=== PATIENT | male | born 1945 | race Caucasian/White ===

== ENCOUNTER → 2017-09-30 12:34 | Outpatient (CLI) | payer MEDICARE, SELFPAY | PROVIDERS: PCP Specialist/Technologist Athletic Trainer; Visit Provider Orthopaedic Surgery | DX: M25.511 Pain in right shoulder (principal); M19.011 Primary osteoarthritis, right shoulder; M75.41 Impingement syndrome of right shoulder; Z01.818 Encounter for other preprocedural examination ==

== ENCOUNTER → 2017-10-19 09:30 | Outpatient (CLI) | payer MEDICARE, SELFPAY | PROVIDERS: PCP Specialist/Technologist Athletic Trainer; Visit Provider Orthopaedic Surgery | DX: Z47.89 Encounter for other orthopedic aftercare (principal); M19.011 Primary osteoarthritis, right shoulder; M25.511 Pain in right shoulder ==

== ENCOUNTER 2017-11-26 10:10 | Outpatient (CLI) | payer MEDICARE, SELFPAY ==
[2017-11-26 10:32] LABS: HGB 14.7 g/dL (13.5-17.5); Mean Corp. HGB Concentration 33.4 g/dL (32.0-36.0); Mean Corpuscular Hemoglobin 30.9 pg (27.0-33.0); Mean Corpuscular Volume 92.4 fL (80-95); Mean Platelet Volume 9.8 fL (8.0-11.0); Platelet Count 190 x1000/uL (130-400); RBC 4.76 m/cumm (4.50-6.00); RBC Distribution Width 13.8 % (11.8-14.1); White Blood Cell Count 3.96 k/cumm (4.4-10.8)
[2017-11-26 11:35] LABS: ALT 41 U/L (12-78); AST 24 U/L (15-37)
[2017-11-26 11:40] LABS: Cholesterol 213 mg/dL (50-200); Triglyceride 125 mg/dL (30-150)
== END 2017-11-26 10:30 ==
PROVIDERS: PCP Specialist/Technologist Athletic Trainer; Visit Provider Dermatology
DX: L40.0 Psoriasis vulgaris (principal); Z79.899 Other long term (current) drug therapy
CPT/HCPCS: 36415; 85027; 82465; 84450; 84460; 84478

== ENCOUNTER 2018-05-30 07:38 | Outpatient (CLI) | payer MEDICARE, SELFPAY ==
[2018-05-30 07:59] LABS: HCT 44.4 % (40.0-50.0); HGB 15.3 g/dL (13.5-17.5); Mean Corp. HGB Concentration 34.5 g/dL (32.0-36.0); Mean Corpuscular Hemoglobin 31.1 pg (27.0-33.0); Mean Corpuscular Volume 90.2 fL (80-95); Mean Platelet Volume 10.2 fL (8.0-11.0); Platelet Count 164 x1000/uL (130-400); RBC 4.92 m/cumm (4.50-6.00); RBC Distribution Width 13.5 % (11.8-14.1); White Blood Cell Count 4.74 k/cumm (4.4-10.8)
[2018-05-30 09:16] LABS: ALT 36 U/L (12-78); AST 18 U/L (15-37)
[2018-05-30 09:19] LABS: Cholesterol 223 mg/dL (50-200); Triglyceride 157 mg/dL (30-150)
== END 2018-05-30 07:58 ==
LOC: LBN 07:44 → LBO 07:47
PROVIDERS: PCP Specialist/Technologist Athletic Trainer; Visit Provider Dermatology
DX: L40.0 Psoriasis vulgaris (principal); Z79.899 Other long term (current) drug therapy
CPT/HCPCS: 36415; 85027; 82465; 84450; 84460; 84478

== ENCOUNTER 2018-11-29 15:16 | Outpatient (CLI) | payer MEDICARE, SELFPAY ==
[2018-11-29 16:24] LABS: HCT 43.3 % (40.0-50.0); HGB 14.6 g/dL (13.5-17.5); Mean Corp. HGB Concentration 33.7 g/dL (32.0-36.0); Mean Corpuscular Hemoglobin 30.6 pg (27.0-33.0); Mean Corpuscular Volume 90.8 fL (80-95); Mean Platelet Volume 10.1 fL (8.0-11.0); Platelet Count 167 x1000/uL (130-400); RBC 4.77 m/cumm (4.50-6.00); RBC Distribution Width 14.1 % (11.8-14.1); White Blood Cell Count 4.97 k/cumm (4.4-10.8)
[2018-11-29 16:40] LABS: Cholesterol 196 mg/dL (50-200); Triglyceride 210 mg/dL (30-150)
[2018-11-29 16:44] LABS: ALT 35 U/L (16-63); AST 22 U/L (15-37)
== END 2018-11-29 15:36 ==
PROVIDERS: PCP Specialist/Technologist Athletic Trainer; Visit Provider Dermatology
DX: L40.0 Psoriasis vulgaris (principal); Z79.899 Other long term (current) drug therapy
CPT/HCPCS: 36415; 85027; 82465; 84450; 84460; 84478

== ENCOUNTER 2019-05-25 09:53 | Outpatient (CLI) | payer MEDICARE, SELFPAY ==
[2019-05-25 10:35] LABS: HCT 42.4 % (40.0-50.0); HGB 14.7 g/dL (13.5-17.5); Mean Corp. HGB Concentration 34.7 g/dL (32.0-36.0); Mean Corpuscular Hemoglobin 31.4 pg (27.0-33.0); Mean Corpuscular Volume 90.6 fL (80-95); Mean Platelet Volume 9.9 fL (8.0-11.0); Platelet Count 175 x1000/uL (130-400); RBC 4.68 m/cumm (4.50-6.00); RBC Distribution Width 13.8 % (11.8-14.1)
[2019-05-25 11:54] LABS: ALT 54 U/L (16-63); AST 28 U/L (15-37)
[2019-05-25 12:54] LABS: Cholesterol 217 mg/dL (<200); Triglyceride 98 mg/dL (<150)
== END 2019-05-25 10:13 ==
PROVIDERS: PCP Specialist/Technologist Athletic Trainer; Visit Provider Dermatology
DX: L40.0 Psoriasis vulgaris (principal); Z79.899 Other long term (current) drug therapy
CPT/HCPCS: 36415; 85027; 82465; 84450; 84460; 84478

== ENCOUNTER 2019-09-08 08:40 | Outpatient (CLI) | payer MEDICARE, SELFPAY ==
[2019-09-15 08:58] LABS: SARS-CoV-2 RNA Undetected (Undetected)
== END 2019-09-08 09:00 ==
PROVIDERS: PCP Specialist/Technologist Athletic Trainer; Visit Provider Nurse Practitioner Family
DX: Z03.818 Encounter for observation for suspected exposure to other biological agents ruled out (principal)
CPT/HCPCS: U0003

== ENCOUNTER 2019-12-11 01:27 | Outpatient (CLI) | payer MEDICARE, SELFPAY ==
[2019-12-11 14:02] LABS: HCT 39.8 % (40.0-50.0); HGB 13.9 g/dL (13.5-17.5); MCHC 34.9 % (32.0-36.0); MCV 88.6 fL (80-95); MPV 10.1 fL (8.0-11.0); Platelet Count 169 10^3/uL (130-400); RBC 4.49 10^6/uL (4.36-5.78); RDW 13.1 % (11.8-14.1); RDW-SD 42.3 fL; WBC 5.26 10^3/uL (4.4-10.8)
[2019-12-11 15:10] LABS: ALT 36 U/L (16-63); AST 21 U/L (15-37); Cholesterol 199 mg/dL (<200); Triglyceride 139 mg/dL (<150)
== END 2019-12-11 01:47 ==
PROVIDERS: Visit Provider Dermatology
DX: L40.0 Psoriasis vulgaris (principal); Z79.899 Other long term (current) drug therapy
CPT/HCPCS: 36415; 85027; 82465; 84450; 84460; 84478

== ENCOUNTER 2020-04-02 16:12 | Outpatient (REF) | payer MEDICARE, SELFPAY ==
[2020-04-02 16:54] LABS: Anion Gap 4.8 mmol/L (3-11); BUN 15 mg/dL (7-18); CO2 30.2 mmol/L (21.0-32.0); Calcium 8.9 mg/dL (8.5-10.1); Calculated LDL 117 mg/dL (<100); Chloride 106 mmol/L (98-107); Cholesterol 200 mg/dL (<200); Glucose 97 mg/dL (74-106); HDL Cholesterol 66 mg/dL (40-60); Potassium 4.6 mmol/L (3.5-5.1); Sodium 141 mmol/L (136-145); Triglyceride 88 mg/dL (<150)
[2020-04-03 17:52] LABS: PSA, Screening 1.2 ng/mL (0.0-6.5)
== END 2020-04-02 16:13 | disposition home or self-care (01) ==
LOC: NCHCN 16:12
PROVIDERS: PCP Nurse Practitioner Family; Visit Provider Nurse Practitioner Family
DX: R03.0 Elevated blood-pressure reading, without diagnosis of hypertension (principal); Z12.5 Encounter for screening for malignant neoplasm of prostate; Z79.899 Other long term (current) drug therapy
CPT/HCPCS: 80048; 80061; 84153

== ENCOUNTER 2020-07-12 08:20 | Outpatient (REF) | payer MEDICARE, SELFPAY ==
[2020-07-12 16:36] LABS: ALT 42 U/L (16-63); AST 27 U/L (15-37); Creatine Kinase 144 U/L (39-308); HDL Cholesterol 60 mg/dL (40-60); LDL CHOLESTEROL 58 mg/dL (<100)
== END 2020-07-12 08:21 | disposition home or self-care (01) ==
LOC: NCHCN 08:20
PROVIDERS: PCP Nurse Practitioner Family; Visit Provider Nurse Practitioner Family
DX: E78.5 Hyperlipidemia, unspecified (principal); R35.0 Frequency of micturition
CPT/HCPCS: 82550; 83721; 83718; 84450; 84460

== ENCOUNTER 2020-11-26 01:47 | Outpatient (CLI) | payer MEDICARE, SELFPAY ==
--- NOTE | 2020-11-26 08:30 | DI.CT_ITS ---
Exam(s) CT SINUS WO EXAM: CT SINUS WO CLINICAL HISTORY: CHRONIC RHINITIS,RUNNY NOSE,DEVIATED SEPTUM,HYPERTROPHY INFERIOR NASAL TURB. Eval uate for sinusitis. TECHNIQUE: Imaging Protocol: Axial computed tomography images with coronal and sagittal reformatted images were created and reviewed. COMPARISON: No exams were available for comparison FINDINGS: AXIAL IMAGES: Frontal sinuses: Mild mucosal thickening. No air-fluid levels. Ethmoid air cells: Mild mucosal thickening of several ethmoid air cells bilaterally. Maxillary sinuses: Mild mucosal thickening bilaterally. No air-fluid levels. Sphenoid sinus: Normally aerated. Ostiomeatal complexes: Patent. Turbinates grossly unremarkable. Osseous nasal septum: Mild deviation to the right. Visualized regional soft tissues: No acute findings. Orbits and retro-orbital soft tissues: Unremarkable. Bones: Unremarkable. Mastoid Air Cells: Normally aerated. IMPRESSION: Mild mucosal thickening in several of the visualized paranasal sinuses. No acute air-fluid levels ar e present. RADIATION DOSE DELIVERED: 125.64mGy.cm Total DLP DATA REPOSITORY: All CT scans at this facility are submitted to the National Radiology Data Registry (NRDR) Dose Index Registry (DIR) with the [employer] (ACR). RADIATION OPTIMIZATION: All CT scans at this facility use at least one of these dose optimization te chniques: automated exposure control; mA and/or kV adjustment per patient size (includes targeted exa ms where dose is matched to clinical indication); or iterative reconstruction.
== END 2020-11-26 02:07 ==
PROVIDERS: PCP Nurse Practitioner Family; Visit Provider Otolaryngology Otolaryngology/Facial Plastic Surgery
DX: J34.3 Hypertrophy of nasal turbinates (principal); J34.2 Deviated nasal septum; R09.89 Other specified symptoms and signs involving the circulatory and respiratory systems; J31.0 Chronic rhinitis
CPT/HCPCS: 70486

== ENCOUNTER 2021-09-08 13:53 | Outpatient (REF) | payer MEDICARE, SELFPAY ==
[2021-09-08 15:56] LABS: ALT 50 U/L (16-63); AST 27 U/L (15-37); HDL Cholesterol 67 mg/dL (40-60); LDL CHOLESTEROL 76 mg/dL (<100)
[2021-09-08 16:10] LABS: Creatine Kinase 144 U/L (39-308)
== END 2021-09-08 13:54 | disposition home or self-care (01) ==
LOC: NCHCN 13:53
PROVIDERS: PCP Nurse Practitioner Family; Visit Provider Nurse Practitioner Family
DX: E78.5 Hyperlipidemia, unspecified (principal)
CPT/HCPCS: 82550; 83721; 83718; 84450; 84460

== ENCOUNTER 2021-12-25 11:55 | Outpatient (CLI) | payer MEDICARE, SELFPAY ==
[2021-12-25 12:15] LABS: HCT 40.9 % (40.0-50.0); HGB 13.8 g/dL (13.5-17.5); MCH 31.3 pg (27.0-33.0); MCHC 33.7 % (32.0-36.0); MCV 93 fL (80-95); MPV 10.1 fL (8.0-11.0); Platelet Count 146 10^3/uL (130-400); RBC 4.41 10^6/uL (4.36-5.78); RDW 12.9 % (11.8-14.1); RDW-SD 43.8 fL; WBC 4.64 10^3/uL (4.4-10.8)
[2021-12-25 12:42] LABS: ALT 32 U/L (16-63); AST 24 U/L (15-37)
[2021-12-25 13:02] LABS: Cholesterol 149 mg/dL (<200); Triglyceride 77 mg/dL (<150)
== END 2021-12-25 11:56 | disposition home or self-care (01) ==
LOC: LBO 11:55
PROVIDERS: PCP Nurse Practitioner Family; Visit Provider Dermatology
DX: Z79.899 Other long term (current) drug therapy (principal); L40.1 Generalized pustular psoriasis
CPT/HCPCS: 36415; 85027; 82465; 84450; 84460; 84478

== ENCOUNTER 2022-06-03 14:48 | Outpatient (CLI) | payer MEDICARE, SELFPAY ==
[2022-06-03 14:46] LABS: HCT 43.2 % (40.0-50.0); HGB 14.8 g/dL (13.5-17.5); MCH 31.2 pg (27.0-33.0); MCHC 34.3 % (32.0-36.0); MCV 91 fL (80-95); MPV 9.8 fL (8.0-11.0); Platelet Count 161 10^3/uL (130-400); RBC 4.75 10^6/uL (4.36-5.78); RDW 13.3 % (11.8-14.1); RDW-SD 44.2 fL
[2022-06-03 15:06] LABS: Hemoglobin A1C 5.3 % (<5.7)
[2022-06-03 15:28] LABS: Calculated LDL 75 mg/dL (<100); Cholesterol 163 mg/dL (<200); HDL Cholesterol 70 mg/dL (40-60); Triglyceride 91 mg/dL (<150)
[2022-06-03 15:36] LABS: ALT 48 U/L (16-63); AST 22 U/L (15-37); TSH (W/Ref FT4) 2.82 uIU/mL (0.36-3.74)
== END 2022-06-03 14:49 | disposition home or self-care (01) ==
LOC: LBO 14:50
PROVIDERS: PCP Nurse Practitioner Family; Visit Provider Nurse Practitioner Family
DX: L40.1 Generalized pustular psoriasis (principal); Z79.899 Other long term (current) drug therapy
CPT/HCPCS: 36415; 80061; 85027; 83036; 84443; 84450; 84460

== ENCOUNTER 2022-08-03 14:55 | Emergency (ER) | payer MEDICARE, SELFPAY ==
[2022-08-03 14:59] VITALS: BP 140/68; PULSE 60; RESP 16; TEMP 36.5; O2SAT 96
--- NOTE | 2022-08-03 22:41 | ED.GENADUL_ITS ---
Discharge Plan Disposition Patient Disposition: Home Discharge Details Clinical Impression: Laceration of leg Primary Care Provider: Genesis Colmenares ED Provider: Maria Victoria Carvajal Home Meds and New Rx's Prescriptions: New cephalexin 500 mg capsule 500 mg PO Q6H 7 Days Qty: 28 0RF Continued methotrexate sodium 2.5 MG tablet 2.5 mg PO WEEKLY Patient Comments: 03.31.17 PT HX SHOWS 2.5MG TABLET 6 TABS PO Q WEEK.he folic acid 1 MG tablet 1 mg PO DAILY acetaminophen [Tylenol Extra Strength] 500 MG tablet 500 mg PO PRN ibuprofen 200 MG tablet 200 mg PO PRN PRN hydrocodone-acetaminophen 1 EACH tablet 1 tab PO Q6H PRN PRNQty: 14 0RF atorvastatin 10 mg tablet 10 mg PO DAILY Patient Comments: TAKE ONE TABLET BY MOUTH IN THE EVENING Discharge Instructions Instructions: Laceration (ED) Additional Instructions: Keep wound clean and dry Elevate your leg is much as possible, the more you are dependent on it the longer will take care of Yogurt daily while on antibiotic Ibuprofen and Tylenol as needed for pain Return earlier should you have new or worsening complaints Referrals: Genesis Colmenares [Primary Care Provider] - Medical Decision Making 76-year-old gentleman presents with large laceration to the right lower extremity Recommended x-ray for further assessment of bony damage or possible foreign body, patient adamantly refuses, patient adamantly refuses xray at this time, fully alert, oriented, of decisional capacity and ambulatory with steady gait I spent approximately 35 minutes suturing this laceration with copious irrigation and large dressing Antibiotics initiated Recheck in 48 to 72 hours recommended Return precautions reviewed and patient expressed understanding Medical Records Medical records reviewed: Yes I reviewed the patient's medical records. Lab Data Lab results reviewed: Yes I reviewed the patient's lab results. HPI General Date/Time Provider Initiated Documentation: 08/03/22 16:31 . HPI Narrative: Patient is a 76-year-old gentleman that was cutting a tree from a tree kicked back and hit his giron. He was seen at [facility] who sent him here for further assessment and closure. States his tetanus is up-to-date. Denies any strength or sensation change. Event occurred just prior to arrival per patient. Related Data Home Medications Medication Instructions Recorded Confirmed acetaminophen 500 mg tablet 500 mg PO PRN 10/08/12 10/04/17 (Tylenol Extra Strength) ibuprofen 200 mg tablet 200 mg PO PRN PRN 10/09/12 10/04/17 folic acid 1 mg tablet 1 mg PO DAILY 03/31/17 08/03/22 methotrexate sodium 2.5 mg tablet 2.5 mg PO WEEKLY 03/31/17 08/03/22 hydrocodone 5 mg-acetaminophen 325 1 tab PO Q6H PRN PRN ##14 10/04/17 mg tablet atorvastatin 10 mg tablet 10 mg PO DAILY 08/03/22 08/03/22 cephalexin 500 mg capsule 500 mg PO Q6H 7 days #28 caps 08/03/22 Previous Rx's Medication Instructions Recorded hydrocodone 5 mg-acetaminophen 325 1 tab PO Q6H PRN PRN ##14 10/04/17 mg tablet cephalexin 500 mg capsule 500 mg PO Q6H 7 days #28 caps 08/03/22 Allergies Allergy/AdvReac Type Severity Reaction Status Date / Time No Known Allergies Allergy Unverified 08/03/22 16:43 General Stated Complaint: Laceration JAMIR: 4 PFSH All Active Problems (Updated 08/03/22 @ 17:43 by KAROL Mckinney) Laceration of leg (Acute) Deviated nasal septum (Acute) Hypertrophy of inferior nasal turbinate (Acute) Social History Smoking/Tobacco Use Status: Never Smoking risk assessment performed?: Yes Alcohol Intake: never Drug use: Never Substance use type: does not use Do you feel safe at home: Yes Do you feel safe in your relationship?: Yes Exam Extrem Other: Patient with a 4 inch laceration to his right anterior distal giron, neurovascularly intact, visualized fascia with muscle tissue noted although neurovascularly intact and ambulatory with antalgic gait Course Vital Signs Vital signs: Vital Signs Temperature 36.5 C 08/03/22 14:59 Pulse 60 08/03/22 14:59 Respiratory Rate 16 08/03/22 14:59 Blood Pressure 140/68 08/03/22 14:59 Pulse Oximetry 96 08/03/22 14:59 Temperature 36.5 C 08/03/22 14:59 Temperature Source Skin 08/03/22 14:59 Pulse 60 08/03/22 14:59 Respiratory Rate 16 08/03/22 14:59 Respiratory Effort Normal 08/03/22 16:46 Blood Pressure 140/68 06/05/23 14:59 Blood Pressure Position Sitting 08/03/22 14:59 Pulse Oximetry 96 08/03/22 14:59 Oxygen Delivery Method Room Air 08/03/22 14:59 Oxygen Flow Rate 0 08/03/22 14:59 Pain Level 0 08/03/22 14:59 Procedures Laceration Laceration 1: Site: lower extremity Side (If applicable): right Size (cm): 10 Description: linear Depth: simple, single layer Local Anesthetic: with Epi Amount of anesthesia used (mL): 10 Pre-repair: wound explored, irrigated extensively and wound margins revised Skin layer closed with: nylon Size (cm): 4-0 Number of sutures: 7 Technique: simple, interrupted and horizontal mattress Subcutaneous layer closed with: vicryl Size: 4-0 Number of sutures: 6 Technique: running Muscle layer closed with: vicryl Size: 4-0 Number of sutures: 8 Technique: running
== END 2022-08-03 18:50 | disposition home or self-care (01) ==
PROVIDERS: Emergency Provider Physician Assistant; PCP Nurse Practitioner Family
DX: S91.011A Laceration without foreign body, right ankle, initial encounter (principal); W20.8XXA Other cause of strike by thrown, projected or falling object, initial encounter
CPT/HCPCS: 12004

== ENCOUNTER 2022-11-30 19:06 | Outpatient (CLI) | payer MEDICARE, SELFPAY ==
[2022-11-30 14:48] LABS: HCT 37.9 % (40.0-50.0); HGB 13.2 g/dL (13.5-17.5); MCH 31.4 pg (27.0-33.0); MCHC 34.8 % (32.0-36.0); MCV 90 fL (80-95); MPV 10.3 fL (8.0-11.0); Platelet Count 151 10^3/uL (130-400); RDW 13.1 % (11.8-14.1); RDW-SD 43.1 fL; WBC 5.23 10^3/uL (4.4-10.8)
[2022-11-30 15:25] LABS: ALT 35 U/L (16-63); AST 27 U/L (15-37)
[2022-11-30 15:34] LABS: Cholesterol 130 mg/dL (<200); Triglyceride 88 mg/dL (<150)
== END 2022-11-30 19:07 | disposition home or self-care (01) ==
LOC: LBO 19:06
PROVIDERS: PCP Nurse Practitioner Family; Visit Provider Dermatology
DX: Z79.899 Other long term (current) drug therapy (principal); L40.1 Generalized pustular psoriasis
CPT/HCPCS: 36415; 85027; 82465; 84450; 84460; 84478

== ENCOUNTER 2023-06-02 15:41 | Outpatient (CLI) | payer MEDICARE, SELFPAY ==
[2023-06-02 15:41] LABS: HCT 41.3 % (40.0-50.0); MCHC 33.9 % (32.0-36.0); MCV 92 fL (80-95); MPV 9.9 fL (8.0-11.0); Platelet Count 149 10^3/uL (130-400); RBC 4.51 10^6/uL (4.36-5.78); RDW 13.3 % (11.8-14.1); RDW-SD 44.7 fL; WBC 4.63 10^3/uL (4.4-10.8)
[2023-06-02 16:40] LABS: ALT 39 U/L (16-63); AST 31 U/L (15-37)
[2023-06-02 16:41] LABS: Cholesterol 152 mg/dL (<200); Triglyceride 50 mg/dL (<150)
== END 2023-06-02 15:42 | disposition home or self-care (01) ==
LOC: LBO 15:42
PROVIDERS: PCP Nurse Practitioner Family; Visit Provider Dermatology
DX: Z79.899 Other long term (current) drug therapy (principal); L40.1 Generalized pustular psoriasis
CPT/HCPCS: 36415; 85027; 82465; 84450; 84460; 84478

== ENCOUNTER 2023-10-22 21:03 | Outpatient (CLI) | payer MEDICARE, SELFPAY ==
--- NOTE | 2023-10-22 | DI.US_ITS ---
Exam(s) US ABDOMEN EXAM: US ABDOMEN CLINICAL HISTORY: ABD PAIN, R10.9, ABD DISCOMFORT NOW OVER 1 WK, RELATED TO EATING TECHNIQUE: Ultrasound abdomen performed using standard protocol. COMPARISON: US RIGHT EXTREMITY ULTRASOUND from 10/09/2012 FINDINGS: ABDOMINAL AORTA AND IVC: Visualized portions normal caliber. PANCREAS: Normal where visualized. LIVER: Normal. Hepatopetal flow in the Portal Vein. The liver measures 15.8 cm long. GALLBLADDER:Cholelithiasis. There are stones seen in the neck of the gallbladder.. No evidence of w all thickening. No pericholecystic fluid identified. BILIARY SYSTEM: Common bile duct measures < 7 mm. No intrahepatic biliary ductal dilation. MARI'S SIGN: Negative. KIDNEYS: Kidneys are symmetric in size. No evidence of renal calculi. No evidence of hydronephrosis. There are simple cysts seen in the right kidney. No follow-up is recommended. There is a 3.2 cm sim ple left renal cysts. No follow-up is recommended. SPLEEN: Not enlarged. ASCITES: None seen. IMPRESSION: Cholelithiasis. No sonographic evidence to suggest acute cholecystitis. No biliary ductal dilatation. DATA REPOSITORY:
--- NOTE | 2023-10-22 17:06 | DI.VRAD_ITS ---
PROCEDURE INFORMATION: Exam: US Abdomen Complete Exam date and time: 10/22/2023 3:16 PM Age: 78 years old Clinical indication: Abdominal pain; Generalized; Patient HX: Appendix removed per patient TECHNIQUE: Imaging protocol: Real-time ultrasound of the abdomen with image documentation. Complete exam. COMPARISON: No relevant prior studies available. FINDINGS: Liver: Normal. No mass. Gallbladder: There is suggestion of 2 large stones in the neck region of the gallbladder. However, there is no significant gallbladder distension or wall thickening. Biliary ducts: Normal. No stones. No dilation. Pancreas: Visualized pancreas is unremarkable. Right kidney: No mass. No hydronephrosis. Left kidney: No mass. No hydronephrosis. A 3.2 cm simple appearing cystic structure in the left kidney is likely a parapelvic cyst. Simple appearing cysts also noted in the right kidney measuring approximately 1.7 cm and 0.7 cm. Spleen: Normal. No splenomegaly. Aorta: Normal. No aneurysm. Inferior vena cava: Normal. IMPRESSION: Possible calculi within the gallbladder, however no evidence of distension or significant gallbladder inflammation. Clinical correlation recommended. Dictated and Authenticated by: Arlene Wiggins MD. Ordering:NEGIN Lewis MD
== END 2023-10-22 21:23 ==
LOC: DI 21:04
PROVIDERS: PCP Nurse Practitioner Family; Visit Provider Physician Assistant Medical
DX: K80.80 Other cholelithiasis without obstruction (principal)
CPT/HCPCS: 36415; 80053; 83690; 76700; 81003; 85025

== ENCOUNTER 2023-10-22 21:15 | Outpatient (CLI) | payer MEDICARE, SELFPAY ==
[2023-10-22 15:16] LABS: Abs Immature Grans 0.03 10^3/uL (0.0-0.06); Absolute Basophil Count 0.02 10^3/uL (0.0-0.2); Absolute Monocyte Count 0.74 10^3/uL (0.1-0.8); Absolute Neutrophil Count 4.35 10^3/uL (1.2-6.7); Basophils % 0.3 %; Eosinophils % 1.5 %; HCT 45.5 % (40.0-50.0); HGB 15.3 g/dL (13.5-17.5); Immature Grans % 0.5 %; Lymphocytes % 21.1 %; MCH 30.8 pg (27.0-33.0); MCHC 33.6 % (32.0-36.0); MCV 92 fL (80-95); MPV 9.9 fL (8.0-11.0); Monocytes % 11.1 %; Neutrophils % 65.5 %; Platelet Count 183 10^3/uL (130-400); RBC 4.96 10^6/uL (4.36-5.78); RDW 13.2 % (11.8-14.1); WBC 6.64 10^3/uL (4.4-10.8)
[2023-10-22 15:18] LABS: Bilirubin Negative (Negative); Blood Negative (Negative); Clarity Clear (Clear); Glucose Negative (Negative); Ketones Trace mg/dL (Negative); Leukocyte Esterase Negative (Negative); Nitrite Negative (Negative); Specific Gravity >= 1.030 (1.005-1.025); Urobilinogen 0.2 mg/dL (Up to 0.2)
[2023-10-22 16:09] LABS: ALT 29 U/L (16-63); AST 23 U/L (15-37); Albumin 3.7 g/dL (3.4-5.0); Alkaline Phosphatase 97 U/L (46-116); Anion Gap 6.3 mmol/L (3-11); BUN 20 mg/dL (7-18); Bilirubin, Total 0.81 mg/dL (0.2-1.0); CO2 29.7 mmol/L (21.0-32.0); CREATININE 1.2 mg/dL (0.70-1.30); Calcium 9.3 mg/dL (8.5-10.1); Chloride 103 mmol/L (98-107); Estimated GFR 62.67 (mL/min/1.73m2); Glucose 102 mg/dL (74-106); Lipase 25 U/L (16-77); Potassium 4.3 mmol/L (3.5-5.1); Sodium 139 mmol/L (136-145); Total Protein 6.8 g/dL (6.4-8.2)
== END 2023-10-22 21:16 | disposition home or self-care (01) ==
LOC: LBO 21:16
PROVIDERS: PCP Nurse Practitioner Family; Visit Provider Physician Assistant Medical
DX: R10.9 Unspecified abdominal pain (principal)
CPT/HCPCS: 36415; 80053; 83690; 81003; 85025

== ENCOUNTER 2023-12-01 15:12 | Outpatient (CLI) | payer MEDICARE, SELFPAY ==
[2023-12-01 15:20] LABS: HCT 41.4 % (40.0-50.0); HGB 13.9 g/dL (13.5-17.5); MCH 31.6 pg (27.0-33.0); MCHC 33.6 % (32.0-36.0); MCV 94 fL (80-95); MPV 10.1 fL (8.0-11.0); Platelet Count 156 10^3/uL (130-400); RDW 13.6 % (11.8-14.1); RDW-SD 46.7 fL; WBC 5.38 10^3/uL (4.4-10.8)
[2023-12-01 16:08] LABS: ALT 44 U/L (16-63); AST 28 U/L (15-37)
[2023-12-01 16:11] LABS: Cholesterol 144 mg/dL (<200); Triglyceride 101 mg/dL (<150)
== END 2023-12-01 15:13 | disposition home or self-care (01) ==
LOC: LBO 15:13
PROVIDERS: PCP Nurse Practitioner Family; Visit Provider Dermatology
DX: Z79.899 Other long term (current) drug therapy (principal); L40.1 Generalized pustular psoriasis
CPT/HCPCS: 36415; 85027; 82465; 84450; 84460; 84478

== ENCOUNTER 2023-12-03 19:19 | Emergency (ER) | payer MEDICARE, SELFPAY ==
[2023-12-03 19:19] VITALS: BP 150/72; PULSE 63; RESP 16; TEMP 36.7; O2SAT 97
[2023-12-03] MEDS: Fluorescein STRIPS 100/BOX 1 MG OP (19:43)
[2023-12-03] MEDS: Tetracaine 0.5% 4 ML BTL (19:43)
--- NOTE | 2023-12-03 19:46 | W.ED.GENAD ---
Discharge Plan Disposition Patient Disposition: Home Condition: Stable Discharge Details Clinical Impression: Injury of conjunctiva and corneal abrasion of right eye w/o FB Primary Care Provider: Genesis Patton ED Provider: Karlie Jimenez Home Meds and New Rx's Prescriptions: Continued acetaminophen [Tylenol Extra Strength] 500 MG tablet 500 mg PO PRN atorvastatin 10 mg tablet 10 mg PO DAILY Patient Comments: TAKE ONE TABLET BY MOUTH IN THE EVENING No Action methotrexate sodium 2.5 MG tablet 2.5 mg PO WEEKLY Patient Comments: 03.31.17 PT HX SHOWS 2.5MG TABLET 6 TABS PO Q WEEK.he folic acid 1 MG tablet 1 mg PO DAILY ibuprofen 200 MG tablet 200 mg PO PRN PRN hydrocodone-acetaminophen 1 EACH tablet 1 tab PO Q6H PRN PRNQty: 14 0RF Discharge Instructions Instructions: Corneal Abrasion ED Additional Instructions: Use the erythromycin ointment 3 times daily while awake for the next 3 to 5 days. Call [facility] eye care Wednesday to be seen on Wednesday or Wednesday. Wear sunglasses and keep it covered as needed. Follow up with primary care provider in 3-5 days. Return to ED sooner if any worsening eye pain, drainage, swelling of your eye, loss of vision or concerns. Referrals: [facility] [Outside] - 3 days HPI General Mode of arrival: ambulatory. Date/Time Provider Initiated Documentation: 12/03/23 19:24. Limitations to Documentation: no limitations. Information obtained by: patient, RN notes reviewed and old records reviewed. HPI Narrative: 78-year-old male presents to the ER with a chief complaint of right eye trauma which occurred prior to arrival. Patient was doing yard work when he ran into a matamoros. He reports that the matamoros poked his right eye. He does have a subconjunctival hemorrhage noted to the outer corner of his eye and is abrasion noted. Iris and pupil are within normal limits and reactive. He does not take any blood thinners or aspirin daily. Related Data Home Medications ?Medication ?Instructions ?Recorded ?Confirmed acetaminophen 500 mg tablet 500 mg PO PRN 10/08/12 12/03/23 (Tylenol Extra Strength) ibuprofen 200 mg tablet 200 mg PO PRN PRN 10/09/12 12/03/23 folic acid 1 mg tablet 1 mg PO DAILY 03/31/17 12/03/23 methotrexate sodium 2.5 mg tablet 2.5 mg PO WEEKLY 03/31/17 12/03/23 hydrocodone 5 mg-acetaminophen 325 1 tab PO Q6H PRN PRN ##14 10/04/17 12/03/23 mg tablet atorvastatin 10 mg tablet 10 mg PO DAILY 08/03/22 12/03/23 Previous Rx's ?Medication ?Instructions ?Recorded hydrocodone 5 mg-acetaminophen 325 1 tab PO Q6H PRN PRN ##14 10/04/17 mg tablet Allergies Allergy/AdvReac Type Severity Reaction Status Date / Time No Known Allergies Allergy Unverified 08/03/22 16:43 General Stated Complaint: EyeProblem JAMIR: 4 Review of Systems Eyes Eyes: Reports as per HPI, Reports irritation, Reports eye pain and Reports other (Eye trauma) Exam Const General: cooperative and healthy appearing Nutritional Appearance: average body habitus Orientation: alert, awake and oriented x3 HENMT Head: normal to inspection General nose exam: external nose normal Face and sinus: normal facial exam Eyes Alignment and Position: alignment normal Periorbital: periorbital findings normal Eyelids: eyelids normal Conjunctivae: conjunctival abnormality right subconjunctival hemorrhage Sclera: scleral abnormality right hemorrhage Cornea: corneas abnormal on the right fluorescein used and abrasion; with no foreign body noted Pupils: PERRL, normal by confrontation and accommodation normal EOM: EOM intact bilaterally Direct ophthalmoscopy: normal light reflex Other: No foreign body visualized. Breen lamp and slit lamp exam performed. Eyes/upper lids images: 1. Abrasion 2. Subconjunctival hemorrhage Course Vital Signs Vital signs: Vital Signs Temperature 36.7 C 12/03/23 19:19 Pulse 63 12/03/23 19:19 Respiratory Rate 16 12/03/23 19:19 Blood Pressure 150/72 H 12/03/23 19:19 Pulse Oximetry 97 12/03/23 19:19 Temperature 36.7 C 12/03/23 19:19 Temperature Source Temporal Artery Scan 12/03/23 19:19 Pulse 63 12/03/23 19:19 Respiratory Rate 16 12/03/23 19:19 Respiratory Effort Normal, Non-Labored 12/03/23 19:26 Blood Pressure 150/72 H 12/03/23 19:19 Blood Pressure Position Sitting 12/03/23 19:19 Pulse Oximetry 97 12/03/23 19:19 Oxygen Delivery Method Room Air 12/03/23 19:19 Oxygen Flow Rate 0 12/03/23 19:19 Pain Level 3 12/03/23 19:19 Medical Decision Making 78-year-old male presents to the ER with a chief complaint of right eye trauma which occurred prior to arrival. Patient was doing yard work when he ran into a matamoros. He reports that the matamoros poked his right eye. He does have a subconjunctival hemorrhage noted to the outer corner of his eye and is abrasion noted. Iris and pupil are within normal limits and reactive. He does not take any blood thinners or aspirin daily. Small amount of uptake of dye noted on fluorescein exam and Breen lamp exam. Slit-lamp exam shows no foreign body visualized. EOMs are intact. There is a subconjunctival hemorrhage noted surrounding the abrasion. Will give erythromycin ointment, follow-up with [facility] in the next 2 to 3 days. Discussed strict return instructions verbalized understanding. This text was generated using [employer] dictation system, please disregard any oddities of phrase or misspellings. Quality:SDOH Health Related Social Needs: No Data to Display PFSH All Active Problems (Updated 12/03/23 @ 19:51 by Karlie Jimenez NP) Injury of conjunctiva and corneal abrasion of right eye w/o FB (Acute) Deviated nasal septum (Acute) Hypertrophy of inferior nasal turbinate (Acute) Social History Smoking/Tobacco Use Status: Never Smoking risk assessment performed?: Yes Alcohol Intake: never Drug use: Never Substance use type: does not use Do you feel safe at home: Yes Do you feel safe in your relationship?: Yes
[2023-12-03] MEDS: Erythromycin Ophth Oint 3.5 GM TUBE OD (20:12)
== END 2023-12-03 20:02 | disposition home or self-care (01) ==
PROVIDERS: Emergency Provider Registered Nurse Emergency; PCP Nurse Practitioner Family
DX: S05.01XA Injury of conjunctiva and corneal abrasion without foreign body, right eye, initial encounter (principal); W22.8XXA Striking against or struck by other objects, initial encounter; Y93.H2 Activity, gardening and landscaping; Y92.017 Garden or yard in single-family (private) house as the place of occurrence of the external cause
CPT/HCPCS: 99283

== ENCOUNTER 2024-11-16 15:27 | Outpatient (CLI) | payer MEDICARE, SELFPAY ==
[2024-11-16 14:58] LABS: HCT 38.9 % (40.0-50.0); HGB 13.4 g/dL (13.5-17.5); MCH 31.5 pg (27.0-33.0); MCHC 34.4 % (32.0-36.0); MCV 92 fL (80-95); MPV 10.6 fL (8.0-11.0); Platelet Count 157 10^3/uL (130-400); RBC 4.25 10^6/uL (4.36-5.78); RDW 13.2 % (11.8-14.1); RDW-SD 44.2 fL; WBC 6.66 10^3/uL (4.4-10.8)
[2024-11-16 15:32] LABS: ALT 34 U/L (16-63); AST 23 U/L (15-37)
[2024-11-16 16:18] LABS: Cholesterol 146 mg/dL (<200); Triglyceride 78 mg/dL (<150)
== END 2024-11-16 15:28 | disposition home or self-care (01) ==
PROVIDERS: PCP Nurse Practitioner Family; Visit Provider Dermatology
DX: Z79.899 Other long term (current) drug therapy (principal)
CPT/HCPCS: 36415; 85027; 82465; 84450; 84460; 84478

== ENCOUNTER 2024-12-12 02:03 | Outpatient (CLI) | payer MEDICARE, SELFPAY ==
--- NOTE | 2024-12-12 | DI.RAD_ITS ---
Exam(s) XR CERVICAL SPINE COMP 4-5V EXAM: XR CERVICAL SPINE COMP 4-5V CLINICAL HISTORY: CHRONIC NECK PAIN,M54.2. TECHNIQUE: 2D digital imaging was performed. Five views were performed. COMPARISON: No exams were available for comparison FINDINGS: BONES: No fracture or destructive lesion. Vertebral bodies are unremarkable. There are facet degenerative changes at C3-4 bilaterally which cause mild neural foraminal encroachment. There also appears to be mild neural foraminal encroachment at C 4-5 on the left. DISKS: There is mild narrowing of the C5-6 disc space. The remaining intervertebral disc spaces are maintained. ALIGNMENT: Cervical spinal alignment is within normal limits. The odontoid and atlantoaxial articulations are normal. SOFT TISSUE: Normal. The lung apices are clear. 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
== END 2024-12-12 02:23 ==
PROVIDERS: PCP Nurse Practitioner Family; Visit Provider Nurse Practitioner Family
DX: M50.321 Other cervical disc degeneration at C4-C5 level (principal); M50.322 Other cervical disc degeneration at C5-C6 level; M99.61 Osseous and subluxation stenosis of intervertebral foramina of cervical region
CPT/HCPCS: 72050